=== PATIENT | male | born 1945 | race Caucasian/White ===

== ENCOUNTER 2017-06-09 08:18 | Outpatient (CLI) | payer OTHER ==
[~2017-06-09 08:18] MED LIST: GEMFIBROZIL600 MG; GLIPIZIDE5 MG; NAPROXEN500 M1; RANITIDINE HCL300 M1; SIMVASTATIN40 MG; TRAMADOL HCL50 MG; VASOTEC10 MG
== END 2017-06-09 08:25 | disposition home or self-care (01) ==
LOC: RAD 08:18
DX: M25.572 Pain in left ankle and joints of left foot (principal)

== ENCOUNTER → 2017-06-13 06:38 | Outpatient (CLI) | payer OTHER | END | disposition home or self-care (01) | LOC: LAB 06:38 | DX: E11.65 Type 2 diabetes mellitus with hyperglycemia (principal) ==

== ENCOUNTER 2018-04-09 07:39 | Outpatient (CLI) | payer OTHER | END 2018-04-09 07:48 | disposition home or self-care (01) | LOC: RAD 07:39 | DX: N06.0 Isolated proteinuria with minor glomerular abnormality (principal) ==

== ENCOUNTER → 2018-06-05 | Outpatient (CLI) | payer OTHER | END | disposition home or self-care (01) | LOC: NUCLEAR 07:00 | DX: K63.5 Polyp of colon (principal) | CPT/HCPCS: 78815; A9552 ==

== ENCOUNTER 2018-10-08 13:48 | Outpatient (CLI) | payer OTHER | END 2018-10-08 13:51 | disposition home or self-care (01) | LOC: RAD 13:48 | DX: M54.5 Low back pain (principal); E11.21 Type 2 diabetes mellitus with diabetic nephropathy; D12.3 Benign neoplasm of transverse colon; Z01.810 Encounter for preprocedural cardiovascular examination; I73.89 Other specified peripheral vascular diseases; K51.40 Inflammatory polyps of colon without complications; M46.95 Unspecified inflammatory spondylopathy, thoracolumbar region; E78.2 Mixed hyperlipidemia; E78.1 Pure hyperglyceridemia; C18.4 Malignant neoplasm of transverse colon; E11.22 Type 2 diabetes mellitus with diabetic chronic kidney disease; E11.638 Type 2 diabetes mellitus with other oral complications ==

== ENCOUNTER → 2021-03-26 | Emergency (ER) | payer OTHER ==
[~2021-03-26] VITALS: Ht 170.2 cm; Wt 85.7 kg
== END | disposition left against medical advice (07) ==
LOC: ER 00:15
DX: F10.10 Alcohol abuse, uncomplicated (principal); Z53.29 Procedure and treatment not carried out because of patient's decision for other reasons

== ENCOUNTER 2021-09-08 11:49 | Emergency (ER) | payer OTHER ==
[~2021-09-08] VITALS: Ht 170.2 cm; Wt 128.4 kg
[2021-09-08] MEDS ORDERED: PANTOPRAZOLE SO40 M2 (11:55)
[2021-09-08] MEDS ORDERED: CANDESARTAN-HC1 EACH (11:56)
[2021-09-08] MEDS ORDERED: GLIPIZIDE XL10 MG (11:56)
[2021-09-08] MEDS ORDERED: DITROPAN XL10 MG (11:56)
[2021-09-08] MEDS ORDERED: GLUMETZA500 MG (11:56)
[2021-09-08] MEDS ORDERED: PEPCID40 MG (11:57)
[2021-09-08] MEDS ORDERED: ECOTRIN325 M1 (11:57)
== END 2021-09-08 14:49 | disposition home or self-care (01) ==
LOC: ER 11:49
DX: R42 Dizziness and giddiness (principal); E11.9 Type 2 diabetes mellitus without complications; Z79.84 Long term (current) use of oral hypoglycemic drugs; I10 Essential (primary) hypertension; E78.00 Pure hypercholesterolemia, unspecified

== ENCOUNTER 2023-02-15 10:37 | Emergency (ER) | payer OTHER ==
[~2023-02-15] VITALS: Ht 170.2 cm; Wt 81.6 kg
[~2023-02-15 10:37] MED LIST changes: +CANDESARTAN-HC1 EACH; +DITROPAN XL10 MG; +ECOTRIN325 M1; +GLIPIZIDE XL10 MG; +GLUMETZA500 MG; +PANTOPRAZOLE SO40 M2; +PEPCID40 MG
[2023-02-15 11:26] LABS: HEMATOCRIT 37.3 % (39.0-48.0); HEMOGLOBIN 13.1 g/dL (13-16.00); MEAN CELL VOLUME 92.6 fL (80.0-100.00); MEAN CORPUSCULAR HEMOGLOBIN 32.5 pg (27.00-32.0); PLATELET COUNT 273 K/uL (150-450); RED BLOOD COUNT 4.03 M/uL (4.00-6.00); RED CELL DISTRIBUTION WIDTH 12.9 % (11.5-14.5)
[2023-02-15 11:52] LABS: ALBUMIN 3.8 gm/dL (3.4-5.0); BILIRUBIN TOTAL 0.29 mg/dL (0.3-1.2); CALCIUM 10.1 mg/dL (8.5-10.1); CREATININE SERUM 1.22 mg/dL (0.70-1.30); GFR 57.6; GLOBULINA 3.8 G/DL (2.4-3.5); POTASSIUM 3.77 mEq/L (3.5-5.1); TOTAL PROTEIN 7.6 gm/dL (6.4-8.2)
== END 2023-02-15 12:38 | disposition home or self-care (01) ==
LOC: ER 10:37
PROVIDERS: General Practice
DX: R00.2 Palpitations (principal)

== ENCOUNTER 2023-05-22 07:08 | Outpatient (CLI) | payer OTHER | END 2023-05-22 07:09 | disposition home or self-care (01) | LOC: NUCLEAR 07:08 | PROVIDERS: ATTEND Internal Medicine | DX: I25.10 Atherosclerotic heart disease of native coronary artery without angina pectoris (principal) | CPT/HCPCS: 78452; 93017; A9500; J0153 ==

== ENCOUNTER → 2024-07-17 | Outpatient (CLI) | payer OTHER | END | disposition home or self-care (01) | LOC: SONOGRAMA 07:22 | PROVIDERS: ATTEND Internal Medicine Nephrology | DX: K76.0 Fatty (change of) liver, not elsewhere classified (principal); N40.1 Benign prostatic hyperplasia with lower urinary tract symptoms ==

== ENCOUNTER 2024-07-24 09:34 | Outpatient (CLI) | payer OTHER | END 2024-07-24 09:41 | disposition home or self-care (01) | LOC: SONOGRAMA 09:34 | DX: S46.211A Strain of muscle, fascia and tendon of other parts of biceps, right arm, initial encounter (principal) ==